=== PATIENT | female | born 1945 | race Caucasian/White ===

== ENCOUNTER → 2020-10-12 | Outpatient (CLI) | payer MEDICARE ==
[~2020-10-12] MED LIST: ASPI81TA45 PO; ATOR-2 PO; LISI5TAB7 PO; METO25TA35 PO; POTA500T PO; TICA90TA PO
== END | disposition home or self-care (01) ==
LOC: CVU 13:30
PROVIDERS: ATTEND Internal Medicine Cardiovascular Disease
DX: I65.23 Occlusion and stenosis of bilateral carotid arteries (principal); E78.2 Mixed hyperlipidemia
CPT/HCPCS: 93880

== ENCOUNTER → 2021-02-18 | Outpatient (CLI) | payer MEDICARE | END | disposition home or self-care (01) | LOC: CFH 10:56 | PROVIDERS: ATTEND Registered Nurse | DX: I08.2 Rheumatic disorders of both aortic and tricuspid valves (principal); I25.2 Old myocardial infarction; I25.5 Ischemic cardiomyopathy | CPT/HCPCS: 93306 ==